=== PATIENT | female | born 1930 | race Caucasian/White ===

== ENCOUNTER → 2016-12-14 | Outpatient (CLI) | payer MEDICARE, BC ==
[~2016-12-14] MED LIST: COUMADIN 5MG5 MG/TAB PO; FOLIC ACID 11 MG/TA1 PO; HYDROXYURE500 MG/CAP PO; IRON325 MG PO; NOLVADEX20 MG PO; PROAMATINE 5MG T5 MG PO; PROTONIX 40MG T40 MG PO; VITAMIN C500 MG PO
== END ==
LOC: MC.RAD 09:31
DX: Z12.31 Encounter for screening mammogram for malignant neoplasm of breast (principal); Z90.12 Acquired absence of left breast and nipple
CPT/HCPCS: G0202

== ENCOUNTER → 2017-12-20 | Outpatient (CLI) | payer MEDICARE, BC | LOC: MC.RAD 13:37 | DX: Z12.31 Encounter for screening mammogram for malignant neoplasm of breast (principal); D05.12 Intraductal carcinoma in situ of left breast; Z90.12 Acquired absence of left breast and nipple ==